=== PATIENT | female | born 1945 | race Caucasian/White ===

== ENCOUNTER 2017-05-05 10:06 | Emergency (ER) | payer OTHER ==
--- NOTE | 2017-05-05 12:22 | DIAGNOSTIC IMAGING REPORT ---
PROCEDURE: XR WRIST MIN 3 VIEWS - RIGHT INDICATION: TRAUMA/INJURY TECHNIQUE: Five views of the right wrist. COMPARISON: None. FINDINGS: Normal mineralization. No fractures. Normal osseous alignment. No suspicious soft-tissue calcification or radiodense foreign bodies. IMPRESSION: 1. Intact right wrist.
--- NOTE | 2017-05-05 13:00 | ED CLINICAL REPORT ---
Clinical Report - Physicians/Mid Levels [facility] [address] [place] [address] 05/05/2017 10:12 Patient: TG JAMA Time Seen: 10:20. Arrived- By ambulance. Historian- patient and EMS personnel. HISTORY OF PRESENT ILLNESS Chief Complaint: INJURY TO HEAD. Location of injuries- head, face, right wrist, right hand and right knee and left hand. The injury occurred just prior to arrival. Fell. She sustained a laceration. The patient complains of mild pain. The patient sustained a blow to the head. No neck pain. REVIEW OF SYSTEMS No chills, fever, sweats, calf pain or chest pain. No cough, difficulty breathing, pedal edema, palpitations or abdominal pain. No constipation, diarrhea, nausea, vomiting or urinary problems. All systems otherwise negative, except as recorded above. PAST HISTORY Tetanus immunization status is up-to-date. SOCIAL HISTORY Never smoker. No alcohol use or drug use. Is a local resident. She lives with spouse. Has good social support. FAMILY HISTORY No significant family medical history. ADDITIONAL NOTES The nursing notes have been reviewed. PHYSICAL EXAM Vital Signs: 05/05/2017 10:12 BP: 162/71. HR: 73. RR: 16. O2 saturation: 98%. Temp: 98.3 F. Pain level now: 3/10. Have been reviewed. Appearance: Alert. Head: Right cheondoism: multiple abrasions. No deep abrasion. Eyes: Pupils equal, round and reactive to light. EOM intact. Right periorbital area: mild tenderness, moderate swelling and subcutaneous 2.0 cm laceration of the supraorbital area of the periorbital area. No entrapment of extraocular muscles or gaze palsy. ENT: No dental injury. Pharynx normal. Neck: Neck non-tender. No vertebral tenderness. CVS: Heart sounds normal. Respiratory: Breath sounds normal. Abdomen: Soft and nontender. No organomegaly. Back: ROM normal. Skin: Skin warm and dry. Extremities: Right wrist: mild tenderness and swelling located in the area of the radial styloid and anatomic snuffbox. Limited ROM secondary to (ulnar deviation and radial deviation). Neurovascular intact distally. Right knee: small abrasion. No lower extremity edema. Neuro: Oriented X 3. Speech normal. No motor deficit. Normal gait. No sensory deficit. PROGRESS AND PROCEDURES Laceration Repair: Location: right eyebrow. Time-out completed immediately before the procedure. Length: 2 cm. Complexity: simple (local anesthesia used and sutured). Wound depth/shape- linear. Anesthesia provided using LET and 2% lidocaine. Prepped with Betadine. Wound explored and cleansed. Closure of skin: interrupted 5-0 nylon (5 sutures). Post-procedure: she is stable and there are no complications. Dressing applied. Tetanus immunization up-to-date. Course of Care: Patient is stable. Patient/family counseled. Old medical records ordered. Old records unavailable. Disposition: Discharged. Condition: stable. CLINICAL IMPRESSION Single superficial laceration to the right periorbital area. Multiple superficial abrasions to the right cheek area, right hand and right knee and left hand. Contusion to the right wrist. Fall on same level by tripping. INSTRUCTIONS Protect wound and keep wound area clean. Change dressing twice daily. You may wash wounds briefly, then dry. Apply neosporin twice daily. Sutures should be removed in seven days. No driving or operating machinery while taking medication. Sedative medication was given during your visit. Warnings: HEAD INJURY PRECAUTIONS: An observer must check on the patient every 2 hours for the next 24 hours (awaken if sleeping) to confirm that the patient responds as expected, is not confused, has no new weakness or numbness, and has no other problems. GENERAL WARNINGS: Return or contact your physician immediately if your condition worsens or changes unexpectedly, if not improving as expected, or if other problems arise. Prescription Medications: Ultram 50 mg: take 1-2 orally every 6 hours as needed for pain. Dispense fifteen (15). No refills. Substitution is permissible. Follow-up: Follow up with your doctor in seven days. Call for an appointment. Understanding of the discharge instructions verbalized by patient and family. (Electronically signed by Emmett Coates MD 05/05/2017 13:19)
--- NOTE | 2017-05-05 13:00 | ED NURSING NOTES ---
Clinical Report - Nurses [facility] [address] [place] [address] 05/05/2017 10:12 Patient: TG JAMA TRIAGE Triage time 10:05. Chief Complaint: FALL while walking, onto a concrete surface and landed face down and on their arms with hands extended. SEPSIS SCREEN: Sepsis Screen. Negative (no infection suspected/documented). --10:09 Jen Mayorga R.N. 10:12 05/05/17. BP: 162/71. HR: 73. RR: 16. O2 saturation: 98%. Temp: 98.3 F. Pain level now: 12/31. --10:14 Jen Mayorga R.N. Weight: 66.6 kg stated. Height/Length: 61 inches Per Patient. BMI: 27.8. --10:07 Jen Mayorga R.N. Medications Losartan Potassium Oral. --10:14 Jen Mayorga R.N. Allergies No Known Drug Allergy. --10:14 Jen Mayorga R.N. History Arrived by EMS. Historian: patient. Primary physician (Cinthya Alexandra ([facility] ( Walking outside and tripped on the sidewalk. Denies LOC). Location of injuries: right yarsanism, right hand, right hand, right palm, left hand, left hand and left palm. This occurred just prior to arrival. 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 Trauma activation: Pre-hospital notification of patient arrival was received. SOCIAL HX: Never smoker. No alcohol use or drug use. No infectious disease exposure. SELF HARM ASSESSMENT: A self harm assessment was performed. The patient answered "no" to the question "Do you have thoughts of harming or killing yourself?". NUTRITIONAL RISK ASSESSMENT: The nutritional risk assessment revealed no deficiencies. FUNCTIONAL ASSESSMENT: Functional assessment: no impairments noted. LEARNING NEEDS ASSESSMENT: The learning needs assessment revealed no barriers. ABUSE ASSESSMENT: Abuse assessment: ("Yes") The patient was asked "Do you feel safe in your home?". SKIN INTEGRITY ASSESSMENT: Skin integrity risk assessment completed. No skin integrity risk identified. --10:09 Jen Mayorga R.N. PROBLEMS: Hypertension. --10:15 Jen Mayorga R.N. ADDITIONAL SURGERIES: Bilateral Tubal Ligation. Knee Surgery. --10:15 Jen Mayorga R.N. PHYSICAL ASSESSMENT To room via stretcher. GENERAL / NEURO / PSYCH: Alert. Oriented X 4. Appears in no acute distress. HEENT: Pupils equal, round and reactive to light. Right yarsanism: subcutaneous 4.0 cm laceration with controlled bleeding. RESPIRATORY: Respirations not labored. CVS: Pulses within normal limits. GI / : Abdomen soft and nontender. EXTREMITIES: Extremities exhibit normal ROM. --10:11 Jen Mayorga R.N. HEENT: Neck: tenderness. EXTREMITIES: Right wrist: tenderness. --10:16 Jen Mayorga R.N. NURSING PROGRESS NOTES Reassurance given. Patient identifiers checked. Side rails up. Bed placed in lowest position. Brakes of bed on. Patient ready for evaluation- ED physician notified. --10:12 Jen Mayroga R.N. 11:40 05/05/2017 LET Topical Topical Solution 1 application. Placed on a cotton ball, applied to the laceration and secured with tape. --11:48 Vicki Zimmerman R.N. 11:40 05/05/2017 Hydrocodone-APAP (Hydrocodone-Acetaminophen) PO 5/325 mg Tablets 1 tab given. Allergies verified, confirmed 5 rights and sedative warning given to the patient. --11:49 Vicki Zimmerman R.N. 11:40 05/05/2017 Lidocaine Injection Injectable 2 % given. (given to ERMD for sutures). --11:49 Vicki Zimmerman R.N. 11:25. ( Dry blood cleaned off of face with towel and water.). --12:22 Jeremiah Davenport, Tech1 11:30 suture tray set up, pt ambulated to bathroom, steady on feet. UA obtained and sent to lab. --11:50 Vicki Zimmerman R.N. 11:40 LET placed, meds given, pt waiting to go to x-ray. --11:51 Erasmo, Vicki, R.N. Bleeding controlled (5 stitches placed in lac). Wound cleansed. WOUND REPAIR: Wound repair performed by ED physician. Assisted by one nurse. The wound is located on the right eyelid. --12:52 Jen Mayorga R.N. Reassessment after (wound closure). She reports no complaints and she is calm. --12:52 Jen Mayorga R.N. DISPOSITION / DISCHARGE 13:11 05/05/17. Departure time: 1310. Condition at departure: improved and stable. No learning barriers present. Discharge instructions provided and reviewed with the patient and spouse. Reviewed medication(s) side effects, precautions, dosing and course information. Activity restrictions (no driving) reviewed. Patient verbalized understanding. Written instructions provided in Ecu[place]orean. The patient was discharged by the physician. She was discharged home and accompanied by spouse. She left the Emergency Department ambulatory and via private vehicle. Spouse driving. --13:12 Joel Henderson R.N. 13:08 05/05/17. BP: 141/51. HR: 70. RR: 16. O2 saturation: 98% on room air. Temp: 97.6 F (oral). Pain level now 12/31. --13:12 Joel Henderson R.N. <<STRICKEN ENTRY-- 13:10 05/05/17. BP: 141/51. HR: 70. RR: 16. O2 saturation: 98%. Temp: 97.6 F. Pain level now: 12/31. --14:03 Jen Mayorga R.N. --END STRIKE>> Correction. --14:04 Jen Mayorga R.N. Locked/Released at 05/05/2017 19:25 by ErasmoVicki R.N.
--- NOTE | 2017-05-05 13:00 | ED ORDER SUMMARY ---
..... Patient: GT JAMA OrderSheet [facility] VisitID: [id number] [address] [place] [address] 71y, F Registration Date/Time: 05/05/2017 ORDER SHEET Weight: 66.6 kg (stated) Allergies: No Known Drug Allergy GENERAL ORDERS: Wrist 3 or 4V Right (please include scaphoid views ) Urgent (11:32 05/05/2017 Grace MONCADA) (Ack 11:33 PWeiler ER Tech1) (12:42 DDean R.N.) MEDICATION ORDERS: LET Topical 1 application (NOW) (11:31 05/05/2017 Grace MONCADA) (Ack 11:37 DDean R.N.) (11:48 DDean R.N.) Hydrocodone-APAP PO 5/325 mg (NOW, HIGH ALERT MEDICATION) (11:32 05/05/2017 Grace MONCADA) (Ack 11:37 DDean R.N.) (11:49 DDean R.N.) Lidocaine Injection 2 % (soln) (place at bedside) (11:34 05/05/2017 Grace MONCADA) (Ack 11:36 DDean R.N.) (11:49 DDean R.N.) IV FLUIDS: ORDER SHEET NOTES: [Electronically signed by Emmett Coates MD (13:19 05/05/2017)] [Electronically signed by Vicki Zimmerman R.N. (19:25 05/05/2017)] [Electronically locked/signed by Vicki Zimmerman R.N. (19:05/05/2017)]
--- NOTE | 2017-05-05 13:00 | ED NURSING NOTES ---
Clinical Report - Nurses Located Within [facility] [address] [place] [address] 05/05/2017 10:12 Patient: TG JAMA TRIAGE Triage time 10:05. Chief Complaint: FALL while walking, onto a concrete surface and landed face down and on their arms with hands extended. SEPSIS SCREEN: Sepsis Screen. Negative (no infection suspected/documented). --10:09 Jen Mayorga R.N. 10:12 05/05/17. BP: 162/71. HR: 73. RR: 16. O2 saturation: 98%. Temp: 98.3 F. Pain level now: 12/31. --10:14 Jen Mayorga R.N. Weight: 66.6 kg stated. Height/Length: 61 inches Per Patient. BMI: 27.8. --10:07 Jen Mayorga R.N. Medications Losartan Potassium Oral. --10:14 Jen Mayorga R.N. Allergies No Known Drug Allergy. --10:14 Jen Mayorga R.N. History Arrived by EMS. Historian: patient. Primary physician (Cinthya Alexandra ([facility])). ( Walking outside and tripped on the sidewalk. Denies LOC). Location of injuries: right buddhist, right hand, right hand, right palm, left hand, left hand and left palm. This occurred just prior to arrival. Treatment PROTOTYPE [employer]ER [employer]: See EMS report. Trauma activation: Pre-hospital notification of patient arrival was received. SOCIAL HX: Never smoker. No alcohol use or drug use. No infectious disease exposure. SELF HARM ASSESSMENT: A self harm assessment was performed. The patient answered "no" to the question "Do you have thoughts of harming or killing yourself?". NUTRITIONAL RISK ASSESSMENT: The nutritional risk assessment revealed no deficiencies. FUNCTIONAL ASSESSMENT: Functional assessment: no impairments noted. LEARNING NEEDS ASSESSMENT: The learning needs assessment revealed no barriers. ABUSE ASSESSMENT: Abuse assessment: ("Yes") The patient was asked "Do you feel safe in your home?". SKIN INTEGRITY ASSESSMENT: Skin integrity risk assessment completed. No skin integrity risk identified. --10:09 Jen Mayorga R.N. PROBLEMS: Hypertension. --10:15 Jen Mayorga R.N. ADDITIONAL SURGERIES: Bilateral Tubal Ligation. Knee Surgery. --10:15 Jen Mayorga R.N. PHYSICAL ASSESSMENT To room via stretcher. GENERAL / NEURO / PSYCH: Alert. Oriented X 4. Appears in no acute distress. HEENT: Pupils equal, round and reactive to light. Right buddhist: subcutaneous 4.0 cm laceration with controlled bleeding. RESPIRATORY: Respirations not labored. CVS: Pulses within normal limits. GI / : Abdomen soft and nontender. EXTREMITIES: Extremities exhibit normal ROM. --10:11 Jen Mayorga R.N. HEENT: Neck: tenderness. EXTREMITIES: Right wrist: tenderness. --10:16 Jen Mayorga R.N. NURSING PROGRESS NOTES Reassurance given. Patient identifiers checked. Side rails up. Bed placed in lowest position. Brakes of bed on. Patient ready for evaluation- ED physician notified. --10:12 Jen Mayorga R.N. 11:40 05/05/2017 LET Topical Topical Solution 1 application. Placed on a cotton ball, applied to the laceration and secured with tape. --11:48 Vicki Zimmerman R.N. 11:40 05/05/2017 Hydrocodone-APAP (Hydrocodone-Acetaminophen) PO 5/325 mg Tablets 1 tab given. Allergies verified, confirmed 5 rights and sedative warning given to the patient. --11:49 Vicki Zimmerman R.N. 11:40 05/05/2017 Lidocaine Injection Injectable 2 % given. (given to ERMD for sutures). --11:49 Vicki Zimmerman R.N. 11:25. ( Dry blood cleaned off of face with towel and water.). --12:22 Jeremiah Davenport, Tech1 11:30 suture tray set up, pt ambulated to bathroom, steady on feet. UA obtained and sent to lab. --11:50 Vicki Zimmerman R.N. 11:40 LET placed, meds given, pt waiting to go to x-ray. --11:51 Erasmo, Vicki, R.N. Bleeding controlled (5 stitches placed in lac). Wound cleansed. WOUND REPAIR: Wound repair performed by ED physician. Assisted by one nurse. The wound is located on the right eyelid. --12:52 Jen Mayorga R.N. Reassessment after (wound closure). She reports no complaints and she is calm. --12:52 Jen Mayorga R.N. DISPOSITION / DISCHARGE 13:11 05/05/17. Departure time: 1310. Condition at departure: improved and stable. No learning barriers present. Discharge instructions provided and reviewed with the patient and spouse. Reviewed medication(s) side effects, precautions, dosing and course information. Activity restrictions (no driving) reviewed. Patient verbalized understanding. Written instructions provided in [place] Islander. The patient was discharged by the physician. She was discharged home and accompanied by spouse. She left the Emergency Department ambulatory and via private vehicle. Spouse driving. --13:12 Joel Henderson R.N. 13:08 05/05/17. BP: 141/51. HR: 70. RR: 16. O2 saturation: 98% on room air. Temp: 97.6 F (oral). Pain level now 12/31. --13:12 Joel Henderson R.N. <<STRICKEN ENTRY-- 13:10 05/05/17. BP: 141/51. HR: 70. RR: 16. O2 saturation: 98%. Temp: 97.6 F. Pain level now: 12/31. --14:03 Jen Mayorga R.N. --END STRIKE>> Correction. --14:04 Jen Mayorga R.N. Locked/Released at 05/05/2017 19:25 by ErasmoVicki R.N.
--- NOTE | 2017-05-05 13:00 | ED ORDER SUMMARY ---
..... Patient: TG AJMA OrderSheet [facility] VisitID: [id number] [address] [place] [address] 71y, F Registration Date/Time: 05/05/2017 ORDER SHEET Weight: 66.6 kg (stated) Allergies: No Known Drug Allergy GENERAL ORDERS: Wrist 3 or 4V Right (please include scaphoid views ) Urgent (11:32 05/05/2017 Grace MONCADA) (Ack 11:33 PWeiler ER Tech1) (12:42 DDean R.N.) MEDICATION ORDERS: LET Topical 1 application (NOW) (11:31 05/05/2017 Grace MONCADA) (Ack 11:37 DDean R.N.) (11:48 DDean R.N.) Hydrocodone-APAP PO 5/325 mg (NOW, HIGH ALERT MEDICATION) (11:32 05/05/2017 Grace MONCADA) (Ack 11:37 DDean R.N.) (11:49 DDean R.N.) Lidocaine Injection 2 % (soln) (place at bedside) (11:34 05/05/2017 Grace MONCADA) (Ack 11:36 DDean R.N.) (11:49 DDean R.N.) IV FLUIDS: ORDER SHEET NOTES: [Electronically signed by Emmett Coates MD (13:19 05/05/2017)] [Electronically signed by Vicki Zimmerman R.N. (19:25 05/05/2017)] [Electronically locked/signed by Vicki Zimmerman R.N. (19:05/05/2017)]
--- NOTE | 2017-05-05 13:00 | ED CLINICAL REPORT ---
Clinical Report - Physicians/Mid Levels [facility] [address] [place] [address] 05/05/2017 10:12 Patient: TG JAMA Time Seen: 10:20. Arrived- By ambulance. Historian- patient and EMS personnel. HISTORY OF PRESENT ILLNESS Chief Complaint: INJURY TO HEAD. Location of injuries- head, face, right wrist, right hand and right knee and left hand. The injury occurred just prior to arrival. Fell. She sustained a laceration. The patient complains of mild pain. The patient sustained a blow to the head. No neck pain. REVIEW OF SYSTEMS No chills, fever, sweats, calf pain or chest pain. No cough, difficulty breathing, pedal edema, palpitations or abdominal pain. No constipation, diarrhea, nausea, vomiting or urinary problems. All systems otherwise negative, except as recorded above. PAST HISTORY Tetanus immunization status is up-to-date. SOCIAL HISTORY Never smoker. No alcohol use or drug use. Is a local resident. She lives with spouse. Has good social support. FAMILY HISTORY No significant family medical history. ADDITIONAL NOTES The nursing notes have been reviewed. PHYSICAL EXAM Vital Signs: 05/05/2017 10:12 BP: 162/71. HR: 73. RR: 16. O2 saturation: 98%. Temp: 98.3 F. Pain level now: 3/10. Have been reviewed. Appearance: Alert. Head: Right hinduism: multiple abrasions. No deep abrasion. Eyes: Pupils equal, round and reactive to light. EOM intact. Right periorbital area: mild tenderness, moderate swelling and subcutaneous 2.0 cm laceration of the supraorbital area of the periorbital area. No entrapment of extraocular muscles or gaze palsy. ENT: No dental injury. Pharynx normal. Neck: Neck non-tender. No vertebral tenderness. CVS: Heart sounds normal. Respiratory: Breath sounds normal. Abdomen: Soft and nontender. No organomegaly. Back: ROM normal. Skin: Skin warm and dry. Extremities: Right wrist: mild tenderness and swelling located in the area of the radial styloid and anatomic snuffbox. Limited ROM secondary to (ulnar deviation and radial deviation). Neurovascular intact distally. Right knee: small abrasion. No lower extremity edema. Neuro: Oriented X 3. Speech normal. No motor deficit. Normal gait. No sensory deficit. PROGRESS AND PROCEDURES Laceration Repair: Location: right eyebrow. Time-out completed immediately before the procedure. Length: 2 cm. Complexity: simple (local anesthesia used and sutured). Wound depth/shape- linear. Anesthesia provided using LET and 2% lidocaine. Prepped with Betadine. Wound explored and cleansed. Closure of skin: interrupted 5-0 nylon (5 sutures). Post-procedure: she is stable and there are no complications. Dressing applied. Tetanus immunization up-to-date. Course of Care: Patient is stable. Patient/family counseled. Old medical records ordered. Old records unavailable. Disposition: Discharged. Condition: stable. CLINICAL IMPRESSION Single superficial laceration to the right periorbital area. Multiple superficial abrasions to the right cheek area, right hand and right knee and left hand. Contusion to the right wrist. Fall on same level by tripping. INSTRUCTIONS Protect wound and keep wound area clean. Change dressing twice daily. You may wash wounds briefly, then dry. Apply neosporin twice daily. Sutures should be removed in seven days. No driving or operating machinery while taking medication. Sedative medication was given during your visit. Warnings: HEAD INJURY PRECAUTIONS: An observer must check on the patient every 2 hours for the next 24 hours (awaken if sleeping) to confirm that the patient responds as expected, is not confused, has no new weakness or numbness, and has no other problems. GENERAL WARNINGS: Return or contact your physician immediately if your condition worsens or changes unexpectedly, if not improving as expected, or if other problems arise. Prescription Medications: Ultram 50 mg: take 1-2 orally every 6 hours as needed for pain. Dispense fifteen (15). No refills. Substitution is permissible. Follow-up: Follow up with your doctor in seven days. Call for an appointment. Understanding of the discharge instructions verbalized by patient and family. (Electronically signed by Emmett Coates MD 05/05/2017 13:19)
--- NOTE | 2017-05-05 19:25 | ED DISCHARGE INSTRUCTIONS ---
Patient: TG JAMA General Instructions [facility] VisitID: [id number] [address] [place] [address] 71y, F Registration Date/Time: 05/05/2017 Single superficial laceration to the right periorbital area. Multiple superficial abrasions to the right cheek area, right hand and right knee and left hand. Contusion to the right wrist. Fall on same level by tripping. INSTRUCTIONS Protect wound and keep wound area clean. Change dressing twice daily. You may wash wounds briefly, then dry. Apply neosporin twice daily. Sutures should be removed in seven days. No driving or operating machinery while taking medication. Sedative medication was given during your visit. Warnings: HEAD INJURY PRECAUTIONS: An observer must check on the patient every 2 hours for the next 24 hours (awaken if sleeping) to confirm that the patient responds as expected, is not confused, has no new weakness or numbness, and has no other problems. GENERAL WARNINGS: Return or contact your physician immediately if your condition worsens or changes unexpectedly, if not improving as expected, or if other problems arise. Prescription Medications: Ultram 50 mg: take 1-2 orally every 6 hours as needed for pain. Dispense fifteen (15). No refills. Substitution is permissible. Follow-up: Follow up with your doctor in seven days. Call for an appointment. Understanding of the discharge instructions verbalized by patient and family. ADDITIONAL INFORMATION Fall, Uncertain Cause You have had a fall today. but the cause of your fall is not certain. Falls can occur due to slipping, tripping or losing your balance. A fall can also occur from a fainting spell or seizure. Because the cause of your fall today is not certain, it is possible that a fainting spell or seizure was the cause. This means that it could happen again, without warning. If you fall again, without a cause, then you should return to this facility promptly to have further tests. Otherwise, follow up with your doctor as explained below. Home Care: 1) Rest today and resume your normal activities as soon as you are feeling back to normal. It is best to remain with someone who can check on you for the next 24 hours to watch for another episode of falling. 2) If you were injured during the fall, follow the advice from your doctor regarding care of your injury. 3) If you become light-headed or dizzy, lie down immediately or sit and lean forward with your head down. 4) As a precaution, do not drive a car or operate dangerous equipment, do not take a bath alone (use a shower instead) and do not swim alone until you see your doctor. A condition causing fainting or seizures must be ruled out before resuming these activities. 5)You may use acetaminophen (Tylenol) or ibuprofen (Motrin, Advil) to control pain, unless another pain medicine was prescribed. [ NOTE : If you have chronic liver or kidney disease or ever had a stomach ulcer or GI bleeding, talk with your doctor before using these medicines.] 6) Keep your appointments for any further testing that may have been scheduled for you. Follow Up: Unless, given other advice, call your doctor on the next office day to advise of your fall and to schedule an appointment. Get Prompt Medical Attention if any of the following occur: -- Another unexplained fall -- Dizziness, fainting or seizure -- Severe headache -- Chest pain or shortness of breath -- Palpitations (very rapid or very slow or irregular heart beat) -- Blood in vomit, stools (black or red color) -- Weakness of an arm or leg or one side of the face -- Difficulty with speech or vision Laceration, Face (Suture Or Tape) Alaceration is a cut through the skin. This will require stitches if it is deep. Minor cuts may be treated with surgical tape. Home care The following guidelines will help you care for your laceration at home: If a bandage was applied and it becomes wet or dirty, replace it. Otherwise, leave it in place for the first 24 hours, then change it once a day or as directed. If sutures were used, clean the wound daily: After removing the bandage, wash the area with soap and water. Use a wet cotton swab to loosen and remove any blood or crust that forms. After cleaning, keep the wound clean and dry. Talk with your doctor before applying any antibiotic ointment to the wound. Reapply a fresh bandage. You may remove the bandage to shower as usual after the first 24 hours, but do not soak the area in water (no swimming) until the sutures are removed. If surgical tape was used, keep the area clean and dry. If it becomes wet, blot it dry with a towel. The doctor may prescribe an antibiotic cream or ointment to prevent infection. Do not stop taking this medication until you have have finished the prescribed course or the doctor tells you to stop. The doctor may also prescribe medications for pain. Follow the doctor's instructions for taking these medications.If you have chronic liver or kidney disease or ever had a stomach ulcer or GI bleeding, talk with your doctor before using these medicines. Follow-up care Follow up with your health care provider. Most facial cuts heal in five days with no problem. However, even with proper treatment, a wound infection sometimes occurs. Therefore, check the wound daily for the warning signs listed below. Stitches should not be left in the face for more thanfivedays; otherwise, permanent stitch arrington may form. If surgical tape closures were used, you may remove them yourself afterfivedays, if they have not fallen off by then. When to seek medical care Get prompt medical attention if any of these occur: Increasing pain in the wound Redness, swelling, or pus coming from the wound If sutures come apart or fall out before 5 days If the surgical tape closures fall off before 5 days, or the wound edges reopen Fever of 100.4F (38C) or higher, or as directed by your health care provider Bleeding not controlled by direct pressure Abrasions Abrasions are skin scrapes. Their treatment depends on how large and deep the abrasion is. Home Care: If you were given a bandage, change it once a day. If your bandage sticks to the wound, soak it in warm water until it loosens. Wash the area with soap and water to remove all the cream/ointment. You may do this in a sink, under a tub faucet or shower. Rinse off the soap and pat dry with a clean towel. Reapply cream/ointment according to your doctor's instructions. This will prevent infection and help prevent the bandage from sticking. Cover the wound with a fresh non-stick bandage (Telfa). Repeat steps 1 to 4 daily, or as directed by your doctor. If the bandage becomes wet or dirty, change it as soon as possible. You may use acetaminophen (Tylenol) or ibuprofen (Motrin, Advil) to control pain, unless another pain medicine was prescribed. [ NOTE : If you have chronic liver or kidney disease or ever had a stomach ulcer or GI bleeding, talk with your doctor before using these medicines.] Do not use ibuprofen in children under six months of age. Follow Up with your physician or this facility as directed by our staff. Most skin wounds heal within ten days. However, an infection may occur despite proper treatment. Therefore, look for the early signs of infection listed below. Get Prompt Medical Attention if any of the following occur: Increasing pain in the wound Increasing redness or swelling Pus coming from the wound Fever of 100.4F (38C) or higher, or as directed by your healthcare provider Contusion:Upper Extremity You have a contusion of your upper extremity (arm, wrist, hand or fingers). This causes local pain, swelling and sometimes bruising. There are no broken bones. This injury takes a few days to a few weeks to heal. A sling may be provided for comfort and arm support. Home Care: 1) Keep your arm elevated to reduce pain and swelling. This is very important during the first 48 hours. 2) Apply an ice pack (ice cubes in a plastic bag, wrapped in a towel) over the injured area for 20 minutes every 1-2 hours the first day for pain relief. Continue this 3-4 times a day until the pain and swelling goes away. 3) You may use acetaminophen (Tylenol) or ibuprofen (Motrin, Advil) to control pain, unless another pain medicine was prescribed. [ NOTE : If you have chronic liver or kidney disease or ever had a stomach ulcer or GI bleeding, talk with your doctor before using these medicines.] 4) If a sling was provided, you may remove it to shower or bathe. Do not wear it for more than one week or it may cause joint stiffness. Follow Up with your doctor or this facility if you are not starting to improve within the next THREE days. [NOTE: If X-rays were taken, they will be reviewed by a radiologist. You will be notified of any new findings that may affect your care.] Get Prompt Medical Attention if any of the following occur: -- Pain or swelling increases -- Redness, warmth or drainage -- Hand or fingers becomes cold, blue, numb or tingly Bandage Change If the bandage becomes wet or dirty, replace it. Otherwise, leave it in place for the first 24 hours. Then once a day: After removing the bandage, wash the area with soap and water. Use a wet cotton swab to loosen and remove any blood or crust that forms on the wound. After cleaning, apply a thin layer of antibiotic ointment or cream. Reapply the bandage. You may shower as usual after the first 24 hours. If the bandage is on an arm or leg, cover it with a plastic bag rubber banded at both ends before showering. No tub baths or swimming until the bandage is removed and the wound healed (at least 7 days). Head Injury With Wake-Up (Adult) You have had a head injury. It does not appear serious at this time. Symptoms of a more serious problem (concussion, bruising, or bleeding in the brain) may appear later. Therefore, watch for the WARNING SIGNS listed below. Home Care: During the next 24 hours someone must stay with you. This person should wake you every 2 hours to check for the signs below. If you have swelling of the face or scalp, apply an ice pack (ice cubes in a plastic bag, wrapped in a towel) for 20 minutes every 1-2 hours until the swelling starts to go down. Do not use aspirin or ibuprofen (Motrin, Advil) after a head injury. You may use acetaminophen (Tylenol) to control pain, unless another pain medicine was prescribed. [NOTE: If you have chronic liver or kidney disease or ever had a stomach ulcer or GI bleeding, talk with your doctor before using these medicines.] For the next 24 hours: Do not take alcohol, sedatives, or medicines that make you sleepy. Do not drive or operate machinery. Avoid strenuous activities. No lifting or straining. If you have had any symptoms of a concussion today (nausea, vomiting, dizziness, confusion, headache, memory loss, or you were knocked out), do not return to sports or any activity that could result in another head injury until all symptoms are gone and you have been cleared by your doctor. A second head injury before fully recovering from the first one can lead to serious brain injury. Follow Up with your doctor if symptoms are not improving after 24 hours, or as directed. [NOTE: A radiologist will review any X-rays or CT scans that were taken. We will notify you of any new findings that may affect your care.] Get Prompt Medical Attention if any of the following WARNING SIGNS occur: Repeated vomiting Severe or worsening headache or dizziness Unusual drowsiness, or unable to awaken as usual Confusion or change in behavior or speech, memory loss, blurred vision Convulsion (seizure) Increasing scalp or face swelling Redness, warmth or pus from the swollen area Fluid drainage or bleeding from the nose or ears Tramadol Hydrochloride Oral tablet What is this medicine? TRAMADOL (TRA ma dole) is a pain reliever. It is used to treat moderate to severe pain in adults. How should I use this medicine? Take this medicine by mouth with a full glass of water. Follow the directions on the prescription label. If the medicine upsets your stomach, take it with food or milk. Do not take more medicine than you are told to take. Talk to your preservative filler machine operator regarding the use of this medicine in children. Special care may be needed. What side effects may I notice from receiving this medicine? Side effects that you should report to your doctor or health md do resident urgent care as soon as possible: allergic reactions like skin rash, itching or hives, swelling of the face, lips, or tongue breathing difficulties, wheezing confusion itching light headedness or fainting spells redness, blistering, peeling or loosening of the skin, including inside the mouth seizures Side effects that usually do not require medical attention (report to your doctor or health md do resident urgent care if they continue or are bothersome): constipation dizziness drowsiness headache nausea, vomiting What may interact with this medicine? Do not take this medicine with any of the following medications: MAOIs like Carbex, Eldepryl, Marplan, Nardil, and Parnate This medicine may also interact with the following medications: alcohol or medicines that contain alcohol antihistamines benzodiazepines bupropion carbamazepine or oxcarbazepine clozapine cyclobenzaprine digoxin furazolidone linezolid medicines for depression, anxiety, or psychotic disturbances medicines for migraine headache like almotriptan, eletriptan, frovatriptan, naratriptan, rizatriptan, sumatriptan, zolmitriptan medicines for pain like pentazocine, buprenorphine, butorphanol, meperidine, nalbuphine, and propoxyphene medicines for sleep muscle relaxants naltrexone phenobarbital phenothiazines like perphenazine, thioridazine, chlorpromazine, mesoridazine, fluphenazine, prochlorperazine, promazine, and trifluoperazine procarbazine warfarin What if I miss a dose? If you miss a dose, take it as soon as you can. If it is almost time for your next dose, take only that dose. Do not take double or extra doses. Where should I keep my medicine? Keep out of the reach of children. Store at room temperature between 15 and 30 degrees C (59 and 86 degrees F). Keep container tightly closed. Throw away any unused medicine after the expiration date. What should I tell my health care provider before I take this medicine? They need to know if you have any of these conditions: brain tumor depression drug abuse or addiction head injury if you frequently drink alcohol containing drinks kidney disease or trouble passing urine liver disease lung disease, asthma, or breathing problems seizures or epilepsy suicidal thoughts, plans, or attempt; a previous suicide attempt by you or a family member an unusual or allergic reaction to tramadol, codeine, other medicines, foods, dyes, or preservatives or trying to get breast-feeding What should I watch for while using this medicine? Tell your doctor or health md do resident urgent care if your pain does not go away, if it gets worse, or if you have new or a different type of pain. You may develop tolerance to the medicine. Tolerance means that you will need a higher dose of the medicine for pain relief. Tolerance is normal and is expected if you take this medicine for a long time. Do not suddenly stop taking your medicine because you may develop a severe reaction. Your body becomes used to the medicine. This does NOT mean you are addicted. Addiction is a behavior related to getting and using a drug for a non-medical reason. If you have pain, you have a medical reason to take pain medicine. Your doctor will tell you how much medicine to take. If your doctor wants you to stop the medicine, the dose will be slowly lowered over time to avoid any side effects. You may get drowsy or dizzy. Do not drive, use machinery, or do anything that needs mental alertness until you know how this medicine affects you. Do not stand or sit up quickly, especially if you are an older patient. This reduces the risk of dizzy or fainting spells. Alcohol can increase or decrease the effects of this medicine. Avoid alcoholic drinks. You may have constipation. Try to have a bowel movement at least every 2 to 3 days. If you do not have a bowel movement for 3 days, call your doctor or health md do resident urgent care. Your mouth may get dry. Chewing sugarless gum or sucking hard candy, and drinking plenty of water may help. Contact your doctor if the problem does not go away or is severe. You have been given the following additional information: Fall, Uncertain Cause Laceration, Face (Suture Or Tape) Abrasion Contusion, Upper Extremity Dressing Change HEAD INJURY with Wake-Up (Adult) Tramadol Hydrochloride Oral tablet No driving or operating machinery while taking medication. Sedative medication was given during your visit. (Electronically signed by Emmett Coates MD 05/05/2017 13:19)
--- NOTE | 2017-05-05 19:25 | ED MED RECONCILIATION SUMMARY ---
Patient: TG JAMA Medication Reconciliation Report [facility] VisitID: [id number] [address] [place] [address] 71y, F Registration Date/Time: 05/05/2017 Weight: 66.6 kg Height/Length: 61 in. BMI: 27.8 ALLERGIES: No Known Drug Allergy The patient's Home Medications are listed below: THE FOLLOWING MEDICATIONS NEED TO BE RECONCILED: Losartan Potassium Oral The source(s) of the original Home Medication information: Not obtained. The following Medications were given to the patient in the Emergency Department: LET [Topical] Topical 1 application, administered: 05/05/2017 11:40:00 AM Hydrocodone-APAP [PO] PO 1 tab, administered: 05/05/2017 11:40:00 AM Lidocaine [Injection] Injection 2 %, administered: 05/05/2017 11:40:00 AM The following Medications were prescribed to the patient: Ultram 50 mg: take 1-2 orally every 6 hours as needed for pain. Dispense fifteen (15). No refills. Substitution is permissible. -- Emmett Coates MD
--- NOTE | 2017-05-05 19:25 | ED MAR SUMMARY ---
..... Medication Administration Record [facility] [address] [place] [address] Patient: TG JAMA Visit ID: [id number] 71y, F Weight: 66.6 kg Height/Length: 61 in BMI: 27.8 ALLERGIES: No Known Drug Allergy Given 11:05/05/2017 Vicki Zimmerman R.N. Medication Administered: LET [TOPICAL], Dose: 1 application Topical Solution Topical. Medication Ordered: LET Topical 1 application (NOW). Given :05/05/2017 Vicki Zimmerman R.N. Medication Administered: HYDROCODONE-APAP [PO] (HYDROCODONE-ACETAMINOPHEN), Dose: 1 tab 5/325 mg Tablets PO. Medication Ordered: Hydrocodone-APAP PO 5/325 mg (NOW, HIGH ALERT MEDICATION). Given :05/05/2017 Vicki Zimmerman R.N. Medication Administered: LIDOCAINE [INJECTION], Dose: 2 % Injectable Injection. Medication Ordered: Lidocaine Injection 2 % (soln) (place at bedside).
--- NOTE | 2017-05-05 19:25 | ED MED RECONCILIATION SUMMARY ---
Patient: TG JAMA Medication Reconciliation Report [facility] VisitID: [id number] [address] [place] [address] 71y, F Registration Date/Time: 05/05/2017 Weight: 66.6 kg Height/Length: 61 in. BMI: 27.8 ALLERGIES: No Known Drug Allergy The patient's Home Medications are listed below: THE FOLLOWING MEDICATIONS NEED TO BE RECONCILED: Losartan Potassium Oral The source(s) of the original Home Medication information: Not obtained. The following Medications were given to the patient in the Emergency Department: LET [Topical] Topical 1 application, administered: 05/05/2017 11:40:00 AM Hydrocodone-APAP [PO] PO 1 tab, administered: 05/05/2017 11:40:00 AM Lidocaine [Injection] Injection 2 %, administered: 05/05/2017 11:40:00 AM The following Medications were prescribed to the patient: Ultram 50 mg: take 1-2 orally every 6 hours as needed for pain. Dispense fifteen (15). No refills. Substitution is permissible. -- Emmett Coates MD
--- NOTE | 2017-05-05 19:25 | ED MAR SUMMARY ---
..... Medication Administration Record [facility] [address] [place] [address] Patient: TG JAMA Visit ID: [id number] 71y, F Weight: 66.6 kg Height/Length: 61 in BMI: 27.8 ALLERGIES: No Known Drug Allergy Given 11:05/05/2017 Vicki Zimmerman R.N. Medication Administered: LET [TOPICAL], Dose: 1 application Topical Solution Topical. Medication Ordered: LET Topical 1 application (NOW). Given :05/05/2017 Vicki Zimmerman R.N. Medication Administered: HYDROCODONE-APAP [PO] (HYDROCODONE-ACETAMINOPHEN), Dose: 1 tab 5/325 mg Tablets PO. Medication Ordered: Hydrocodone-APAP PO 5/325 mg (NOW, HIGH ALERT MEDICATION). Given :05/05/2017 Vicki Zimmerman R.N. Medication Administered: LIDOCAINE [INJECTION], Dose: 2 % Injectable Injection. Medication Ordered: Lidocaine Injection 2 % (soln) (place at bedside).
== END 2017-05-05 13:10 | disposition home or self-care (01) ==
LOC: ED SRH 10:06
DX: S01.111A Laceration without foreign body of right eyelid and periocular area, initial encounter (principal); S60.211A Contusion of right wrist, initial encounter; S00.81XA Abrasion of other part of head, initial encounter; S60.512A Abrasion of left hand, initial encounter; S60.511A Abrasion of right hand, initial encounter; S80.212A Abrasion, left knee, initial encounter; W01.0XXA Fall on same level from slipping, tripping and stumbling without subsequent striking against object, initial encounter; Y93.01 Activity, walking, marching and hiking; Y99.9 Unspecified external cause status; Y92.9 Unspecified place or not applicable